=== PATIENT | female | born 1995 | race Caucasian/White ===

== ENCOUNTER → 2020-10-15 11:26 | Outpatient (CLI) | payer SELFPAY ==
[2020-10-15 10:25] VITALS: BMI 21.9
[2020-10-15 12:47] LABS: Absolute Lymphocyte Count 2.01 X10^3/uL (0.83-4.51); Absolute Neutrophil Count 4.2 X10^3/uL (2.0-7.7); Basophil# 0.04 X10^3/uL; Basophil% 0.6 % (0-1); Eosinophil# 0.03 X10^3/uL; Eosinophils% 0.4 % (0-5); Hematocrit 38.3 % (37-47); Hemoglobin 12.6 g/dL (12.0-15.0); Lymphocyte # 2.01 X10^3/ul (4.0); Lymphocyte % 29.1 % (19-41); Mean Corp Hgb Conc 32.9 g/dL (32-36); Mean Corpuscular Hgb 29.3 pg (27.0-32.0); Mean Corpuscular Volume 89.1 fL (81-99); Mean Platelet Vol. 9.4 fl (6.2-12.0); Monocyte# 0.58 X10^3/uL; Monocyte% 8.4 % (0-10); NRBC Flagged by Analyzer 0 % (0-5); Neutrophil # 4.22 X10^3/uL (2.7-7.7); Neutrophil % 61.1 % (47-70); Platelet Count 246 K/mm3 (150-450); RBC Distribution Width CV 12.2 % (11.6-14.6); RBC Distribution Width SD 39.8 fl (35.1-43.9); White Blood Count 6.9 K/mm3 (4.4-11.0)
[2020-10-15 14:03] LABS: Amphetamine Urine VISTA NEGATIVE (<1000 ng/mL); Barbiturate Urine VISTA NEGATIVE (< 200 ng/mL); Benzodiazepine Urine VISTA NEGATIVE (< 200 ng/mL); Cocaine Urine VISTA NEGATIVE (< 300 ng/mL); Ecstacy Urine VISTA NEGATIVE (< 500 ng/mL); Methadone Urine VISTA NEGATIVE (< 300 ng/mL); PCP Urine VISTA NEGATIVE (< 25 ng/mL); THC Urine VISTA NEGATIVE (< 50 ng/mL); Vista UDS pH Range 7
[2020-10-15 16:10] LABS: HIV - WCH Non-Reactive (Nonreactive); Hepatitis B Surface Antigen Non-Reactive (Nonreactive); Hepatitis C Antibody Non-Reactive (Nonreactive); Rubella IgG Reactive (Nonreactive); Syphilis Antibodies Non-reactive
[2020-10-17 03:07] LABS: Chlamydia By Nucleic Acid AMP Negative (Negative)
[2020-10-17 11:34] LABS: Gonococcus By Nucleic Acid AMP Negative (Negative)
== END ==
PROVIDERS: Referring Provider Obstetrics & Gynecology; Visit Provider Obstetrics & Gynecology
DX: Z34.90 Encounter for supervision of normal pregnancy, unspecified, unspecified trimester (principal)
CPT/HCPCS: 36415; 80307; 85025; 86703; 86762; 86780; 86803; 86850; 86900; 86901; 87086; 87088; 87340; 87491; 87591

== ENCOUNTER → 2020-11-07 12:18 | Outpatient (CLI) | payer SELFPAY ==
[2020-10-15 10:25] VITALS: BMI 21.9
--- NOTE | 2020-11-07 12:25 | US_ITS ---
STUDY: FIRST TRIMESTER OBSTETRICAL ULTRASOUND REASON FOR EXAM: Female, 25 years old well being LMP: 08/31/2020. TECHNIQUE: Transvaginal TECHNICAL QUALITY: Adequate. PRIOR ULTRASOUND: None. FINDINGS: There is visualization of a single gestational sac in a normal intrauterine position. The mean sac diameter (MSD) measures 3.55 cm, indicating an estimated gestational age (EGA) of 8 weeks, 5 days. The gestational sac shape is within normal limits. There is no demonstrated yolk sac. The placenta is non-visualized. There is visualization of an embryo with no cardiac activity, consistent with intrauterine demise. The crown-rump length (CRL) measures 2 cm, indicating an estimated gestational age (EGA) of 80 weeks, 3 days. The estimated gestation age (EGA) by LMP is 9 weeks, 5 days. The estimated date of delivery (CHUNG) by LMP is 06/07/2021. The estimated gestation age (EGA) by US is 8 weeks, 4 days. The estimated date of delivery (CHUNG) by US is 06/15/2021. The uterus measures 10.7 cm x 7.8 cm x 7.1. There is no demonstrated uterine fibroid. The cervix is closed. The right ovary measures 2.9 cm x 3.9 cm x 2.1 cm. There is no right ovarian cyst. There is no visualized right adnexal mass or complex lesion. The left ovary measures 3.4 cm x 3 cm x 1.6 cm. There is no left ovarian cyst. There is no visualized left adnexal mass or complex lesion. There is no fluid in the cul de sac. US/Init OB < 14Wks US IMPRESSION: demise. Electronically Signed: Armaan Davis MD at 13:48 EDT , Service support ,
== END ==
PROVIDERS: Referring Provider Nurse Practitioner Women's Health; Visit Provider Nurse Practitioner Women's Health
DX: O36.4XX0 Maternal care for intrauterine death, not applicable or unspecified (principal); Z3A.08 8 weeks gestation of pregnancy
CPT/HCPCS: 76801

== ENCOUNTER 2020-11-08 11:48 | Day surgery (SDC) | payer SELFPAY ==
[2020-11-07 13:02] VITALS: BMI 21.9
[2020-11-08] VITALS (7 sets, daily range): BP systolic 87–97; BP diastolic 54–69; PULSE 76–96; RESP 14–16; TEMP 36.4–37.4; O2SAT 97–100; BMI 22.1
--- NOTE | 2020-11-08 12:23 | HP.PCM.OB_ITS ---
HPI - General HPI Narrative ROSALINE WEINBERG, is a 25 F who presents for suction dilation and curettage for missed . [facility] Medical History Migraine Non-smoker Stomach ulcer Wears glasses Home Medications cholecalciferol (vitamin D3) 25 mcg (1,000 unit) capsule 25 mcg PO DAILY 10/12/20 [History Last Taken Unknown] folic acid 1 mg tablet 1 mg PO DAILY 10/12/20 [History Last Taken Unknown] multivitamin no.47-iron fum 27 mg-folate no.1 1 mg-dha 300 mg capsule 1 cap PO DAILY 10/12/20 [History Last Taken Unknown] Allergy/AdvReac Type Severity Reaction Status Date / Time No Known Allergies Allergy Verified 11/07/20 14:08 Family History Father , age 51 Alcohol abuse Hypertrophic cardiomyopathy Grandmother , 70's CVA (cerebral vascular accident) Cancer Lung- non smoker Grandfather , 50's Heart disease Grandfather Heart disease Grandmother Heart disease Uncle Diabetes type 2 Uncle , age 40 Cancer esophageal cancer Surgical History H/O wisdom tooth extraction History of skin graft (~2010) History of tonsillectomy Social History adopted: No household members: spouse housing: condominium current occupational status: employed 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 [place] sexually active: Yes Smoking Status: Never smoker second hand exposure: No alcohol intake: never substance use type: does not use seatbelt use: always do you feel safe at home: Yes additional social history: - [facility] ([facility]) History 1 Elective abortions Hx Para Spontaneous abortions Hx # Term Pregnancies Ectopic pregnancies Hx # Pregnancies Multiple births # of living children Visit Details Expected Delivery Route/Plan Plans OB Flowsheet Initial Weight: Not Recorded Date -?-?-?-?-?-?--?-?-?-?-?-?- EGA Weight BP Urine Prot -?-?-?-?-?-?-?-?-?-?-?-?- Glucose FHR FuHt Pres Dilation -?-?-?-?-?-?-?-?-?-?-?-?- Effaced St Visit Note 10/15/20 -?-?-?-?-?-?-?-?-?-?-?-?- 6w 3d 112 lb 6 oz 110/82 -?-?-?-?-?-?-?-?-?-?-?-?- 125 -?-?-?-?-?-?-?-?-?-?-?-?- GP - CRL 7mm con sistent with LMP. 11/07/20 -?-?-?-?-?-?-?-?-?-?-?-?- 9w 5d 113 lb 4 oz 108/68 -?-?-?-?-?-?-?-?-?-?-?-?- -?-?-?-?-?-?-?-?-?-?-?-?- GP - US today co nsistent with missed AB 11/08/20 -?-?-?-?-?-?-?-?-?-?-?-?- 9w 6d -?-?-?-?-?-?-?-?-?-?-?-?- -?-?-?-?-?-?-?-?-?-?-?-?- ROS Eyes Eyes: Reports systems reviewed and no addt'l complaints, except as documented ENT HEENT: Reports systems reviewed and no addt'l complaints, except as documented Cardiovascular Cardiovascular: Reports systems reviewed and no addt'l complaints, except as documented Respiratory/Chest Respiratory/Chest: Reports systems reviewed and no addt'l complaints, except as documented Gastrointestinal Gastrointestinal: Reports systems reviewed and no addt'l complaints, except as documented Genitourinary Genitourinary: Reports systems reviewed and no addt'l complaints, except as documented Musculoskeletal Musculoskeletal: Reports systems reviewed and no addt'l complaints, except as documented Integumentary Integumentary: Reports systems reviewed and no addt'l complaints, except as documented Neurologic Neurologic: Reports systems reviewed and no addt'l complaints, except as documented Psychiatric Psychiatric: Reports systems reviewed and no addt'l complaints, except as documented Endocrine Endocrinology: Reports systems reviewed and no addt'l complaints, except as documented Hematologic/Lymphatic Hematologic/Lymphatic: Reports systems reviewed and no addt'l complaints, except as documented Allergic/Immunologic Allergic/Immunologic: Reports systems reviewed and no addt'l complaints, except as documented Physical Exam Const alert, oriented x3, no apparent distress, average body habitus, healthy appearing and well nourished HEENT normocephalic and moist oral mucous membranes Head and Scalp: atraumatic Eyes PERRL and EOMs intact bilaterally Neck full ROM Resp normal respiratory effort, no retractions and no use of accessory muscles Cardio regular rate and regular rhythm GI soft to palpation, non-tender and non-distended Extremity normal to inspection and full ROM Skin no rashes or lesions noted Neuro no focal motor deficits and no sensory deficits noted Psych mental status grossly normal, affect normal, speech normal and activity/motor behavior normal Assessment & Plan (1) Missed : PLAN: Patient diagnosed with miscarriage on US 11/07.? No heart rate present and crown-rump length measuring 1 week behind. Discussed ultrasound findings with patient and her Reassurance provided that this is not uncommon and that there is nothing that she did to cause this or could have been done to prevent this. Discussed that this would not have a significant effect on her ability to get in the future Management options discussed with patient including expectant management, medical management, and surgical management with suction D&C.? Patient desires definitive surgical intervention with suction D&C. The nature of the procedure was described to the patient. The risks, benefits, indications, and alternatives to the procedure were discussed with the patient including bleeding, infection, and damage to surrounding structures. Discussed that risks are very low with D&C. Discussed the possibility of perforation and that this could require laparotomy or laparoscopy. Discussed the possibility of damage to surrounding structures including uterus, tubes, ovaries, bowel, or bladder. Understands the risk of hospitalization or reoperation. Voices understanding and agrees to proceed. Medical and surgical history reviewed and are noncontributory Plan for suction dilation and curettage Rh negative - plan rhogam following procedure
[2020-11-08 12:35] LABS: Hematocrit 38.1 % (37-47); Hemoglobin 12.6 g/dL (12.0-15.0); Mean Corp Hgb Conc 33.1 g/dL (32-36); Mean Corpuscular Hgb 28.8 pg (27.0-32.0); Mean Platelet Vol. 9.1 fl (6.2-12.0); Platelet Count 249 K/mm3 (150-450); RBC Distribution Width CV 12.1 % (11.6-14.6); RBC Distribution Width SD 39.1 fl (35.1-43.9); Red Blood Count 4.38 M/mm3 (4.2-5.4); White Blood Count 7.4 K/mm3 (4.4-11.0)
[2020-11-08] MEDS: Lactated Ringers 1,000 ML 100 ML IV (12:44)
[2020-11-08] MEDS: Doxycycline 100 MG CAPSULE 200 MG PO (12:45)
[2020-11-08] MEDS: Ondansetron 4 MG/2 ML Vial IV (13:45)
--- NOTE | 2020-11-08 13:45 | POC_PTH ---
PATIENT: ROSALINE WEINBERG LOC: [facility] [place] U#:[id number] AGE/SX: 25/F ROOM: RE11/08/[address]: Dr. Esha Flower MD : 1995 BED: DIS: 11/08/2020 SPEC #: [id number] RECD: 11/08/20 14:29 STATUS: JULIÁN RENate #: [id number] JOVI: 11/08/20 13:[address]: Esha Flower DEPT: SURGICAL PATHOLOGY RECD BY: Rosa Lynch ENTERED: 11/09/20 09:52 SP TYPE: PROD CONC OTHR DR: No Primary Care Phys Tissues: Product of conception, NOS Procedures: Surgery Specimen Level IV HEADER OPERATION: Suction dilation and curettage PRE-OP DIAGNOSIS: Missed AB TISSUE SUBMITTED: Uterine contents MICROSCOPIC DIAGNOSIS Uterine contents: [place], gestational endometrium, immature chorionic villi and tissue (products of conception). SJ:marilee 11/12/2020 MICROSCOPIC DESCRIPTION Slides are reviewed. GROSS DESCRIPTION Received in fixative is one container labeled with the patient's name and designated uterine contents. The specimen consists of multiple fragments of pink hemorrhagic soft tissue that in aggregate measure 8 x 8 x 2 cm. tissue is not identified. Door Repairman tissue is submitted in two cassettes. / SAMSON:marilee 11/09/20 TC:5 CPT: 46074
--- NOTE | 2020-11-08 14:35 | EX.PCM.DISCH ---
Discharge Instructions Procedure D&C Diet Discharge Diet: No restrictions Activity Discharge Activity: Return to Normal Activity, May Shower and May Take a Tub Bath (in 2 weeks.) Follow Up Care Test Results: Test results from this visit will be discussed in further detail at your follow-up appointment, if applicable. Discharge Plan Admission Primary Reason for Your Visit: Miscarriage Attending Provider: Esha Flower Primary Care Provider: Care Physician,No Primary Instructions Patient Instructions: Dilation and Curettage Discharge Orders/Prescriptions Prescriptions: New ibuprofen [ibuprofen] 600 MG tablet 600 mg PO Q6H PRN PRN (Reason: pain) Qty: 30 RF: 1 Continued PNV-DHA 27 mg iron-1 mg -300 mg capsule 1 cap PO DAILY RF: 0 folic acid 1 mg tablet 1 mg PO DAILY RF: 0 cholecalciferol (vitamin D3) 25 mcg (1,000 unit) capsule 25 mcg PO DAILY RF: 0 Referrals / Follow Up: Care Physician,No Primary [Primary Care Provider] - Disposition Disposition (needs filled in before D/C Order can be placed): Home, self care
--- NOTE | 2020-11-08 14:40 | EX.PCM.OBRPT ---
Report of Operation (OB) Information CHUNG Calculator Estimated Delivery Date Method Current WG Current Estimate 06/07/21 Ultrasound #1 9w 6d Other Estimates 05/14/21 LMP (Certain) 13w 2d
--- NOTE | 2020-11-08 16:08 | PCM.OPRPT ---
Problems Associated Problem List Diagnoses (1) Missed : Report of Operation Date of Procedure: 11/08/20 Pre-Operative Diagnosis: Missed Post-Operative Diagnosis: same Surgery/Procedure Performed:: suction dilation and curettage Description of Surgical Findings:: Normal appearing cervix marketing officer: None Type of Anesthesia: MAC Anesthesiologist: William Hernandez Special Medications: Doxycycline PO pre-op Specimen's removed: Products of conception Estimated Blood Loss (mL): 20 cc Description of Procedure: The patient was taken to the operating room where anesthesia was obtained without difficulty. She was prepped and draped in the dorsal lithotomy position with yellofin stirrups. A weighted speculum was placed in the posterior aspect of the vagina and the anterior lip of the cervix was grasped with a ring forcep. The cervix was sequentially dilated to accommodate a #8 curved curette. The suction was activated and the products of conception were removed in an outward rotating movement. A gentle sharp curettage was then performed followed by an additional pass with the suction. The procedure was deemed complete. All instruments were removed from the vagina. The patient was awakened from anesthesia and taken to the recovery room in stable condition. Complications None Admit VTE Documentation VTE Present on Admission: No VTE Mechan Device Prophylaxis: SCD's VTE Pharm Prophylaxis ordered?: No Multi Select Codes Urinary/Genital Urinary/Genital CPT Codes: 51549 Trmt of incomplete Ab, any TM
== END 2020-11-08 16:20 | disposition home or self-care (01) ==
LOC: SDC 11:49 → AC 11:50
PROVIDERS: Referring Provider Obstetrics & Gynecology; Visit Provider Obstetrics & Gynecology
PROC: (CPT 59812; principal; 2020-11-08 13:30)
DX: O03.4 Incomplete spontaneous abortion without complication (principal); Z67.91 Unspecified blood type, Rh negative; Z87.11 Personal history of peptic ulcer disease; Z3A.09 9 weeks gestation of pregnancy
CPT/HCPCS: 01965; 59812; 85027; 86850; 86900; 86901; 87426; 88305; 90384; J7120; J2405; J2790

== ENCOUNTER → 2021-02-22 | Outpatient (CLI) | payer SELFPAY | END | disposition home or self-care (01) | LOC: LABSPEC 15:33 | PROVIDERS: Visit Provider Obstetrics & Gynecology | DX: Z34.91 Encounter for supervision of normal pregnancy, unspecified, first trimester (principal); Z3A.09 9 weeks gestation of pregnancy | CPT/HCPCS: 87086; 87088 ==

== ENCOUNTER → 2021-05-13 10:16 | Outpatient (CLI) | payer SELFPAY ==
--- NOTE | 2021-05-13 10:22 | US_ITS ---
STUDY: SECOND AND THIRD TRIMESTER OBSTETRICAL ULTRASOUND REASON FOR EXAM: Female, 26 years old anatomy scan LMP: 12/21/2020. TECHNIQUE: Transabdominal and Transvaginal TECHNICAL QUALITY: Adequate. PRIOR ULTRASOUND: None. FINDINGS: There is a single intrauterine fetus. The fetus is in a breech presentation. There is demonstrated cardiac activity with a heart rate of 158 bpm. There is a normal amniotic fluid volume. The largest amniotic fluid pocket measures 4.7 cm. The amniotic fluid index (VINOD) is within normal limits. The placenta is anterior in location and is not low lying. There are Grade 0 placental changes. The cervix measures 3.6 times in length. The bilateral adnexal regions are normal. BIOMETRY: BPD: 4.76 cm: 20 weeks, 2 days HC: 18.25 cm: 20 weeks, 4 days AC: 16.57 cm: 21 weeks, 4 days FL: 3.09 cm: 19 weeks, 4 days CI: 73% FL/BPD: 65% FL/HC: FL/AC: 19% HC/AC: 1.1 age by current US: 20 weeks, 3 days. CHUNG by current US: 09/27/2021. Estimated weight: 372 grams, +/- 56 grams, 60 %. Age by LMP: 20 weeks, 3 days. CHUNG by LMP: 09/27/2021. ANATOMY: Gender: Cranium: Normal lateral ventricles. Normal choroid plexus. Normal cerebellum. Normal cisterna magna. Normal face, nose and lips. Chest: Normal 4-chamber heart. Abdomen/Pelvis: Normal diaphragm. Normal stomach. Normal abdominal wall. Normal cord insertion. Normal 3 vessel cord. Normal kidneys. Normal bladder. Spine: Normal cervical spine. Normal thoracic spine. Normal lumbar spine. Normal sacrum. Extremities: Normal bilateral upper extremities. Normal bilateral lower extremities. US/OB Anatomy Scan IMPRESSION: Single live intrauterine gestation with a mean gestational age of 20 weeks and 3 days. Electronically Signed: Armaan Davis MD at 13:10 EST , Service support ,
== END ==
PROVIDERS: Referring Provider Obstetrics & Gynecology; Visit Provider Obstetrics & Gynecology
DX: Z34.90 Encounter for supervision of normal pregnancy, unspecified, unspecified trimester (principal)
CPT/HCPCS: 76805; 76817

== ENCOUNTER 2021-09-04 09:57 | Outpatient (CLI) | payer SELFPAY | END 2021-09-04 23:59 | disposition home or self-care (01) | LOC: LABSPEC 09:58 | PROVIDERS: Visit Provider Obstetrics & Gynecology | DX: O09.90 Supervision of high risk pregnancy, unspecified, unspecified trimester (principal) | CPT/HCPCS: 87081 ==

== ENCOUNTER 2021-10-02 07:46 | Inpatient (IN) | payer SELFPAY ==
[2020-10-15 10:25] VITALS: BMI 21.9
[2021-10-02] VITALS (43 sets, daily range): BP systolic 87–111; BP diastolic 50–70; PULSE 71–122; RESP 16; TEMP 36.3–37.2; O2SAT 95–100; BMI 29.5
[2021-10-02] MEDS: 0.9% Saline Lock 10 ML Syringe IV (08:05)
[2021-10-02 08:50] LABS: Absolute Lymphocyte Count 1.82 X10^3/uL (0.83-4.51); Absolute Neutrophil Count 8.6 X10^3/uL (2.0-7.7); Basophil# 0.05 X10^3/uL; Basophil% 0.4 % (0-1); Eosinophil# 0.02 X10^3/uL; Eosinophils% 0.2 % (0-5); Hematocrit 34.3 % (37-47); Hemoglobin 11.8 g/dL (12.0-15.0); Lymphocyte # 1.82 X10^3/ul (0.83-4.51); Lymphocyte % 15.8 % (19-41); Mean Corp Hgb Conc 34.4 g/dL (32-36); Mean Corpuscular Hgb 30.1 pg (27.0-32.0); Mean Corpuscular Volume 87.5 fL (81-99); Mean Platelet Vol. 9.8 fl (6.2-12.0); Monocyte# 0.79 X10^3/uL; Monocyte% 6.9 % (0-10); NRBC Flagged by Analyzer 0 % (0-5); Neutrophil # 8.64 X10^3/uL (2.7-7.7); Neutrophil % 75.2 % (47-70); Platelet Count 206 K/mm3 (150-450); RBC Distribution Width CV 14.1 % (11.6-14.6); RBC Distribution Width SD 45.1 fl (35.1-43.9); Red Blood Count 3.92 M/mm3 (4.2-5.4); White Blood Count 11.5 K/mm3 (4.4-11.0)
[2021-10-02 09:20] LABS: Rubella IgG Reactive (Nonreactive); Syphilis Antibodies Non-reactive
[2021-10-02 10:48] LABS: HIV - WCH Non-Reactive (Nonreactive); Hepatitis B Surface Antigen Non-Reactive (Nonreactive); Hepatitis C Antibody Non-Reactive (Nonreactive)
[2021-10-02] MEDS: Oxytocin 30 units/NS 500 ml 30 UNITS/500 ML IV.SOLN 334 UNITS IV (11:36)
--- NOTE | 2021-10-02 13:03 | HP.PCM.OB_ITS ---
HPI - General General Date of Admission: 10/02/21 HPI Narrative ROSALINE WEINBERG, is a 26 F who presents to L&D with painful contractions. She was found to be 5 cm dilated per the nurse who checked her and she is breathing heavily with contractions and unable to finish senetences Maternal Data Information CHUNG Calculator Estimated Delivery Date Method Current WG Current Estimate 09/27/21 Ultrasound #1 40w 5d Other Estimates 09/21/21 LMP (Certain) 41w 4d PFSH PFSH Medical History Abnormal antibody titer Migraine Non-smoker Stomach ulcer Wears glasses Home Medications multivitamin no.47-iron fum 27 mg-folate no.1 1 mg-dha 300 mg capsule 1 cap PO DAILY 10/12/20 [History Last Taken 10/01/21] ferrous sulfate [Iron (ferrous sulfate)] 325 mg PO DAILY 10/02/21 [History Last Taken 10/01/21] Allergy/AdvReac Type Severity Reaction Status Date / Time No Known Allergies Allergy Verified 09/26/21 09:08 Family History Father , age 51 Alcohol abuse Hypertrophic cardiomyopathy Grandmother , 70's CVA (cerebral vascular accident) Cancer Lung- non smoker Grandfather , 50's Heart disease Grandfather Heart disease Grandmother Heart disease Uncle Diabetes type 2 Uncle , age 40 Cancer esophageal cancer Surgical History H/O wisdom tooth extraction History of skin graft (~2010) History of tonsillectomy Status post dilation and curettage Social History adopted: No household members: spouse housing: condominium current occupational status: employed 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 Date Name GA/Weeks Outcome Route Bth Weight Gen Labor Lgth Anesthesia Del 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 Problem list reviewed and updated with the most current plan of care details and appropriate orders placed. Relevant counseling for the gestational age provided. Continue routine care and follow up unless otherwise noted in visit not es/problem list details OB Flowsheet Initial Weight: 119 lb Date -?-?-?-?-?-?-?-?-?-?-?-?- EGA Weight BP Urine Prot -?-?-?-?-?-?-?-?-?-?-?-?- Glucose FHR FuHt Pres Dilation -?-?-?-?-?-?-?-?-?-?-?-?- Effaced St Visit Note 02/22/21 -?-?-?-?-?-?-?-?-?-?-?-?- 9w 0d 119 lb (+0 oz) 112/62 -?-?-?-?-?-?--?-?-?-?-?-?- 175 -?-?-?-?-?-?-?-?-?-?-?-?- SM- CRL 2.1cm no t cons with LMP 03/20/21 -?-?-?-?-?-?-?-?-?-?-?-?- 12w 5d 123 lb 4 oz (+4 lb 4 oz) 104/66 -?-?-?-?-?-?-?-?-?-?-?-?- 160 -?-?-?-?-?-?-?-?-?-?-?-?- GP - no cramping or bleeding. Anatomy scan ordered. Don't have records from work - will send ROR 04/15/21 -?-?-?-?-?-?-?-?-?-?-?-?- 16w 3d 124 lb (+5 lb) 98/62 Negative -?-?-?-?-?-?-?-?-?-?-?-?- Negative 155 -?-?-?-?-?-?-?-?-?-?-?-?- SM-no vb crampin g 05/13/21 -?-?-?-?-?-?-?-?-?-?-?-?- 20w 3d 128 lb (+9 lb) 104/74 -?-?-?-?-?-?-?-?-?-?-?-?- 145 -?-?-?-?-?-?-?-?-?-?-?-?- SM- no vb crampi ng anatomy scan today 06/10/21 -?-?-?-?-?-?-?-?-?-?-?-?- 24w 3d 135 lb (+16 lb) 92/74 Negative -?-?-?-?-?-?-?-?-?-?-?-?- Negative 140 -?-?-?-?-?-?-?-?-?-?-?-?- SM- no vb lof ct x good fm 07/01/21 -?-?-?-?-?-?-?-?-?-?-?-?- 27w 3d 137 lb (+18 lb) 98/60 Negative -?-?-?-?-?-?-?-?-?-?-?-?- Negative 145 28 -?-?-?-?-?-?-?-?-?-?-?-?- SM- no vb lof go od fm no regular ctx 07/15/21 -?-?-?-?-?-?-?-?-?-?-?-?- 29w 3d 139 lb (+20 lb) 100/62 Negative -?-?-?-?-?-?-?-?-?-?-?-?- Negative 135 30 -?-?-?-?-?-?-?-?-?-?-?-?- JV- no lof, vagi nal bleeding, or dec fm. Rhogam was given. normal glucola (128) 07/29/21 -?-?-?-?-?-?-?-?-?-?-?-?- 31w 3d 140 lb (+21 lb) 96/58 Negative -?-?-?-?-?-?-?-?-?-?-?-?- Negative 154 32 -?-?-?-?-?-?-?-?-?-?-?-?- MH-No VB, LOF. Good FM. No concerns 08/15/21 -?-?-?-?-?-?-?-?-?-?-?-?- 33w 6d 144 lb 8 oz (+25 lb 8 oz) 100/70 Negative -?-?-?-?-?-?-?-?-?-?-?-?- Negative 145 33 -?-?-?-?-?-?-?-?-?-?-?-?- JV- no lof, vagi nal bleeding, or dec fm. taking iron and is self pay. wants to hold off on cbc at this time. 08/29/21 -?-?-?-?-?-?-?-?-?-?-?-?- 35w 6d 147 lb (+28 lb) 94/62 Negative -?-?-?-?-?-?-?-?-?-?-?-?- Negative 145 36 Cephalic -?-?-?-?-?-?-?-?-?-?-?-?- SM- no vb lof go od fm nor egular ctx 09/03/21 -?-?-?-?-?-?-?-?-?-?-?-?- 36w 4d 146 lb (+27 lb) 100/70 Negative -?-?-?-?-?-?-?-?-?-?-?-?- Negative 155 36 Cephalic 1 -?-?-?-?-?-?-?-?-?-?-?-?- 80 -2 JV- labor precautions discussed. GBS collected. 09/12/21 -?-?-?-?-?-?-?-?-?-?-?-?- 37w 6d 148 lb (+29 lb) 112/62 -?-?-?-?-?-?-?-?-?-?-?-?- 150 37 Cephalic 1 -?-?-?-?-?-?-?-?-?-?-?-?- 80 -2 SM- no vb lof good fm no regular ctx 09/19/21 -?-?-?-?-?-?-?-?-?-?-?-?- 38w 6d 148 lb 6 oz (+29 lb 6 oz) 100/70 Negative -?-?-?-?-?-?-?-?-?-?-?-?- Negative 156 38 Cephalic -?-?-?-?-?-?-?-?-?-?-?-?- JV- no lof, vagi nal bleeding, or dec fm. pt declines pelvic exam today. states no changes since last exam. likely plan 41 week IOL 09/26/21 -?-?-?-?-?-?-?-?-?-?-?-?- 39w 6d 148 lb 2 oz (+29 lb 2 oz) 110/72 Negative -?-?-?-?-?-?-?-?-?-?-?-?- Negative 150 39 Cephalic 2 -?-?-?-?-?-?-?-?-?-?-?-?- 80 -2 SM- no vb lof good fm co back labor. 10/02/21 -?-?-?-?-?-?-?-?-?-?-?-?- 40w 5d 151 lb (+32 lb) 105/70 92/54 105/58 90/62 108/60 110/59 106/58 102/56 -?-?-?-?-?-?-?-?-?-?-?-?- -?-?-?-?-?-?-?-?-?-?-?-?- ROS Constitutional Constitutional: Denies change in weight, fatigue, fever(s), headache(s), poor appetite or weakness Eyes Eyes: Denies blurry vision, change in vision, seeing flashes or spots in vision ENT HEENT: Denies dizziness, headache(s), loss taste/smell or sore throat Cardiovascular Cardiovascular: Denies chest pain, dizziness, dyspnea, irregular heart rhythm, leg edema, palpitations, rapid heart rate or vomiting Respiratory/Chest Respiratory/Chest: Denies chest tightness, cough, dyspnea or breast pain Gastrointestinal Gastrointestinal: Denies abdominal pain, anorexia, constipation, cramping, diarrhea, hemorrhoids, vomiting or weight changes Genitourinary Genitourinary: Denies dysuria, flank pain, genital lesions, genital pain, urinary frequency or urinary urgency Musculoskeletal Musculoskeletal: Denies back pain, difficulty walking, joint pain, limited range of motion, muscle cramps or numbness Integumentary Integumentary: Denies lesions or unusual bruising Neurologic Neurologic: Denies abnormal movements, abnormal speech, dizziness, numbness, seizure-like activity or syncope Psychiatric Psychiatric: Denies anxiety, behavioral changes, change in appetite, change in libido, cognitive impairment, confusion, depression, difficulty concentrating, hallucinations or suicidal thoughts Endocrine Endocrinology: Denies excessive sweating, polydipsia or polyuria Hematologic/Lymphatic Hematologic/Lymphatic: Denies easy bleeding, easy bruising or lymphadenopathy Allergic/Immunologic Allergic/Immunologic: Denies itchy eyes, lip swelling, seasonal rhinorrhea, rhinitis, throat swelling, tongue swelling, eczemia, wheezing or asthma Vital Signs Vital Signs Vital Signs: 10/02/21 07:16 10/02/21 07:19 10/02/21 07:20 Temperature 97.3 F L Temperature Source Temporal Pulse Rate 106 H 104 H Blood Pressure 105/70 BP Systolic 105 BP Diastolic 70 Pulse Ox 100 10/02/21 09:16 10/02/21 10:22 10/02/21 11:12 Temperature 97.4 F L 97.5 F L Temperature Source Temporal Temporal Pulse Rate 82 71 75 Blood Pressure 92/54 L 105/58 L BP Systolic 92 105 BP Diastolic 54 58 Pulse Ox 96 10/02/21 11:51 10/02/21 11:52 10/02/21 11:56 Temperature 97.5 F L Temperature Source Temporal Pulse Rate 101 H 102 H Blood Pressure 90/62 BP Systolic 90 BP Diastolic 62 Pulse Ox 100 100 10/02/21 12:01 10/02/21 12:06 10/02/21 12:09 Temperature 97.4 F L Temperature Source Temporal Pulse Rate 110 H 94 104 H Blood Pressure 108/60 BP Systolic 108 BP Diastolic 60 Pulse Ox 100 100 10/02/21 12:11 10/02/21 12:16 10/02/21 12:21 Temperature Temperature Source Pulse Rate 94 101 H 99 Blood Pressure BP Systolic BP Diastolic Pulse Ox 100 100 100 10/02/21 12:24 10/02/21 12:26 10/02/21 12:31 Temperature 98.4 F Temperature Source Temporal Pulse Rate 100 101 H 98 Blood Pressure 110/59 L BP Systolic 110 BP Diastolic 59 Pulse Ox 99 100 10/02/21 12:36 10/02/21 12:39 10/02/21 12:41 Temperature Temperature Source Pulse Rate 98 97 102 H Blood Pressure 106/58 L BP Systolic 106 BP Diastolic 58 Pulse Ox 100 99 10/02/21 12:46 10/02/21 12:51 10/02/21 12:54 Temperature Temperature Source Pulse Rate 98 106 H 102 H Blood Pressure 102/56 L BP Systolic 102 BP Diastolic 56 Pulse Ox 99 100 10/02/21 12:56 10/02/21 13:01 Temperature Temperature Source Pulse Rate 97 106 H Blood Pressure BP Systolic BP Diastolic Pulse Ox 100 99 Weight Weight: 151 lb Body Mass Index (BMI) 29.5 Physical Exam Const alert, oriented x3, no apparent distress and healthy appearing General Appearance: cooperative; Negative for anxious HEENT normocephalic Face and Sinus: normal facial exam Eyes EOMs intact bilaterally and no scleral icterus General Eye: normal appearance of both eyes Neck full ROM and supple Lymph Lymphatic: no lymphadenopathy noted Chest Chest: abnormal inspection of the chest Resp normal respiratory effort Effort and Inspection: able to speak in complete sentences Cardio regular rate GI soft to palpation and non-tender Inspection: gravid Palpation: soft; Negative for tender external exam normal Back/Spine no CVA tenderness Extremity normal to inspection, full ROM and no clubbing, cyanosis or edema General Extremity: Negative for calf tenderness or edema Skin Lesions: no lesions Rashes: no rashes Psych mental status grossly normal Labs Labs Labs: Blood Type O NEGATIVE Antibody Screen NEGATIVE Hct 34.3 % (37-47) L Hgb 11.8 g/dL (12.0-15.0) L Pap Smear Negative Obstetrics US Syphilis Total Ab Non-reactive Rubella IgG Antibody Reactive (Nonreactive) Hep Bs Antigen Non-Reactive (Nonreactive) Chlamydia DNA (GUEVARA) Negative (Negative) Neisseria gonorrhoeae DNA (GUEVARA) Negative (Negative) HIV 1&2 Antibody Non-Reactive (Nonreactive) Assessment & Plan (1) Anemia affecting in third trimester: COMMENT: iron supplement discussed. repeat cbc in 4-6 weeks (2) Supervision of high risk , antepartum: COMMENT: PRR CHUNG 09/27/21 surprise Spouse:Javier (3) : QUALIFIERS: Weeks of gestation: 39 weeks Qualified Code(s): Z3A.39 - 39 weeks gestation of COMMENT: declines genetic, carrier and AFP; NL anatomy. GBS neg (4) Rh negative status during : QUALIFIERS: Trimester: third trimester Qualified Code(s): O26.893 - Other specified related conditions, third trimester; Z67.91 - Unspecified blood type, Rh negative COMMENT: O negative. Rhogam at 28w and prn. Per patient received Rhogam on 07/09/21 in [place] office (5) Active labor: PLAN: Patient presents IAL, plan expectant management for , pitocin/AROM PRN if needed. Pain management: plans epidural. GBS negative. Management of any complications: none I have reviewed the [facility] and made any clinically relevant updates.
--- NOTE | 2021-10-02 17:08 | EX.PCM.OBRPT ---
Maternal Data Information CHUNG Calculator Estimated Delivery Date Method Current Current Estimate 09/27/21 Ultrasound #1 40w 5d Other Estimates 09/21/21 LMP (Certain) 41w 4d Vaginal Delivery Maternal Presentation Maternal Presentation: Active Labor Operative Information Date of Procedure: 10/02/21 Pre-Operative Diagnosis: @ 4o weeks 3 days, active labor Post-Operative Diagnosis: @ 4o weeks 3 days, active labor Type of Anesthesia: None Estimated Blood Loss: 200cc Findings Description of Procedure: Patient began pushing and delivered the head in the MARILEE presentation. The head was delivered atraumatically. The anterior and posterior shoulders delivered without complication followed by the rest of the and the was placed on the maternal abdomen. Delayed cord clamping was employed for approximately 60 seconds. Cord was clamped and cut and gentle traction was applied to the cord and the placenta delivered spontaneously immediately following it was noted to be intact with three-vessel cord. The perineum and vagina were inspected and noted to have a 2nd degree perineal laceration, which was repaired using a 2-0 vicryl suture. EBL was 200 cc. Patient and tolerated delivery well. Presentation: Vertex Amniotic Membrane Rupture Type: Spontaneous Amniotic Fluid Description: Clear Placental Delivery Description: Spontaneous Placenta Disposition: [facility] Cord Vessel Description: 3 Vessels Cord Entanglement: None Infant A Gender: Male (1 minute): 8 (5 minute): 9 Delayed Cord Clamping: Yes Post Vaginal Delivery Medications Given After Delivery: IV Pitocin Episiotomy Description: None Laceration: 2nd degree Complication Complications: None Multi Select Codes Urinary/Genital Urinary/Genital CPT Codes: 33371 Vaginal Delivery [facility]
[2021-10-02] MEDS: Benzocaine/Lanolin/Aloe Vera 1 SPRAY EACH TOPICAL (17:25)
[2021-10-03 03:56] VITALS: BP 96/57; PULSE 95; RESP 16; TEMP 36.6
[2021-10-03 08:25] VITALS: BP 93/63; PULSE 81; RESP 16; TEMP 36.9; O2SAT 95
--- NOTE | 2021-10-03 08:40 | PCM.DC ---
Discharge Instructions Diet Discharge Diet: No restrictions Activity Discharge Activity: Return to Normal Activity, May Not Drive (while taking narcotic pain medications.) and May Shower May resume sexual activity in: 4-6 weeks Dressing / Incision Call your doctor if your incision/area has: Continuous Slow Oozing, Sudden Increased Bleeding, Increased Pain/ Swelling, Increased Redness and Foul Smelling Discharge Follow Up Care Please Follow Up With: Claudette Saavedra DO When: Call [phone] to make an appointment with your doctor in 6 weeks. If you had elevated blood pressure or 4th degree laceration, you will need to be seen in 2 weeks. Test Results: Test results from this visit will be discussed in further detail at your follow-up appointment, if applicable. Discharge Plan Admission Admit Date/Time: 10/02/21 07:46 Primary Reason for Your Visit: vaginal delivery Attending Provider: Claudette Saavedra Primary Care Provider: Care Physician,No Primary Discharge Orders/Prescriptions Prescriptions: No Action PNV-DHA 27 mg iron-1 mg -300 mg capsule 1 cap PO DAILY RF: 0 ferrous sulfate [Iron (ferrous sulfate)] 325 mg (65 mg iron) Tablet 325 mg PO DAILY RF: 0 Referrals / Follow Up: Care Physician,No Primary [Primary Care Provider] - Disposition Disposition (needs filled in before D/C Order can be placed): Home, Self Care
--- NOTE | 2021-10-03 08:41 | PCM.PN.OB ---
Subjective Subjective Patient doing well without complaints. Tolerating PO. Ambulating and voiding without difficulty. Feeding well. Denies chest pain, shortness of breath, calf pain/swelling, fevers, chills, lightheadedness. Objective Data Objective Data Vital Signs: Vital Signs Temp Pulse Resp BP Pulse Ox 98.4 F 81 16 93/63 95 10/03/21 08:25 10/03/21 08:25 10/03/21 08:25 10/03/21 08:25 10/03/21 08:25 Oxygen Delivery Method Room Air Weight: 151 lb Body Mass Index (BMI) 29.5 Intake & Output: Intake and Output for Last 24 Hours 10/01/21 10/02/21 10/03/21 23:59 23:59 23:59 Intake Total 700 / 700 Output Total 1300 / 1300 Balance -600 / -600 Lab / Micro Data Result Diagrams: 10/02/21 08:20 Labs: Laboratory Results - last 24 hr 10/02/21 08:20: WBC 11.5 H, RBC 3.92 L, Hgb 11.8 L, Hct 34.3 L, MCV 87.5, MCH 30.1, MCHC 34.4, RDW Std Deviation 45.1 H, RDW Coeff of [place] 14.1, Plt Count 206, MPV 9.8, Immature Gran % (Auto) 1.500 H, Neut % (Auto) 75.2 H, Lymph % (Auto) 15.8 L, [place] % (Auto) 6.9, Eos % (Auto) 0.2, Baso % (Auto) 0.4, Absolute Neuts (auto) 8.6 H, Absolute Lymphs (auto) 1.82, Nucleated RBC % 0 10/02/21 08:20: Blood Type O NEGATIVE, Antibody Screen TNP 10/02/21 08:20: Syphilis Total Ab Non-reactive, Rubella IgG Antibody Reactive 10/02/21 08:20: Hep Bs Antigen Non-Reactive, Hepatitis C Antibody Non-Reactive, HIV 1&2 Antibody Non-Reactive 10/02/21 08:20: Antibody Screen NEGATIVE 10/02/21 15:15: Screen NEGATIVE, Baby's Blood Type O POSITIVE, Baby's BLANCA NEGATIVE Micro: Microbiology 10/02/21 08:24 Nasal Secretion SARS-CoV-2 Antigen (Rapid) - Final ROS Constitutional Constitutional: Denies chills, fatigue, fever(s), poor appetite or weakness Eyes Eyes: Denies blurry vision, change in vision, seeing flashes or spots in vision ENT HEENT: Denies dizziness, headache(s), loss taste/smell or sore throat Cardiovascular Cardiovascular: Denies chest pain, dizziness, dyspnea, irregular heart rhythm, palpitations or rapid heart rate Respiratory/Chest Respiratory/Chest: Denies chest tightness, cough, dyspnea or breast pain Gastrointestinal Gastrointestinal: Denies abdominal pain, constipation or vomiting Genitourinary Genitourinary: Denies dysuria or flank pain Musculoskeletal Musculoskeletal: Denies difficulty walking, joint pain, limited range of motion or numbness Neurologic Neurologic: Denies abnormal movements, abnormal speech, dizziness, numbness, seizure-like activity or syncope Psychiatric Psychiatric: Denies anxiety, behavioral changes, change in appetite, confusion, depression or suicidal thoughts Physical Exam Const alert, oriented x3 and no apparent distress General Appearance: cooperative and comfortable Resp normal respiratory effort Cardio regular rate GI normal to inspection, nondistended, normoactive bowel sounds GI Narrative: uterus is firm at umbilicus Palpation: soft OB / External & Speculum: other laceration site healing but has some bruising present Back/Spine no CVA tenderness and thoraco-lumbar ROM normal Extremity normal to inspection, no clubbing, cyanosis or edema, no calf tenderness and no pedal edema Psych mental status grossly normal, thought process normal, cooperative, affect normal, speech normal, activity/motor behavior normal, denies homicidal ideation and denies suicidal ideation Assessment & Plan (1) Active labor: (2) Anemia affecting in third trimester: COMMENT: iron supplement discussed. repeat cbc in 4-6 weeks (3) Supervision of high risk , antepartum: COMMENT: PRR CHUNG 09/27/21 surprise Spouse:Javier (4) : QUALIFIERS: Weeks of gestation: 39 weeks Qualified Code(s): Z3A.39 - 39 weeks gestation of COMMENT: declines genetic, carrier and AFP; NL anatomy. GBS neg (5) Rh negative status during : QUALIFIERS: Trimester: third trimester Qualified Code(s): O26.893 - Other specified related conditions, third trimester; Z67.91 - Unspecified blood type, Rh negative COMMENT: O negative. Rhogam at 28w and prn. Per patient received Rhogam on 07/09/[address] [place] office PLAN: s/p PPD # 1 1. routine post delivery care 2. breast feeding- support given 3. rh positive 4. rubella immune 5. may consider dc to home today after meeting with . if swelling and bruising worsens on labia will keep for obs overnight
[2021-10-03 13:18] VITALS: BP 102/72; PULSE 87; RESP 16; TEMP 36.3; O2SAT 94
--- NOTE | 2021-10-03 18:39 | NURSING ---
This RN has reviewed and agrees with charting completed by orienting RN Jamie Valentino
[2021-10-03 20:35] VITALS: BP 104/63; PULSE 91; RESP 16; TEMP 36.3
[2021-10-04 02:46] VITALS: BP 100/60; PULSE 73; RESP 14; TEMP 36.3
--- NOTE | 2021-10-04 08:01 | PCM.PN.OB ---
Subjective Subjective Patient doing well without complaints. Tolerating PO. Ambulating and voiding without difficulty. feeding well. Denies chest pain, shortness of breath, calf pain/swelling, fevers, chills, lightheadedness. Objective Data Objective Data Vital Signs: Vital Signs Temp Pulse Resp BP Pulse Ox 97.4 F L 73 14 100/60 94 10/04/21 02:46 10/04/21 02:46 10/04/21 02:46 10/04/21 02:46 10/03/21 13:18 Oxygen Delivery Method Room Air Weight: 151 lb Body Mass Index (BMI) 29.5 Intake & Output: Intake and Output for Last 24 Hours 10/02/21 10/03/21 10/04/21 23:59 23:59 23:59 Intake Total 700 / 700 Output Total 1300 / 1300 Balance -600 / -600 Lab / Micro Data Result Diagrams: 10/02/21 08:20 Micro: Microbiology 10/02/21 08:24 Nasal Secretion SARS-CoV-2 Antigen (Rapid) - Final ROS Constitutional Constitutional: Reports systems reviewed and no addt'l complaints, except as documented Cardiovascular Cardiovascular: Reports systems reviewed and no addt'l complaints, except as documented Respiratory/Chest Respiratory/Chest: Reports systems reviewed and no addt'l complaints, except as documented Gastrointestinal Gastrointestinal: Reports systems reviewed and no addt'l complaints, except as documented Physical Exam Const alert, oriented x3 and no apparent distress HEENT Head and Scalp: atraumatic Resp normal respiratory effort GI soft to palpation and non-tender Bimanual Exam - Vag & Uterus: uterus non-tender Uterus Palpation: uterus fundus firm (below Umbilicus) Assessment & Plan (1) Vaginal delivery: COMMENT: larisa 40 IAL [facility] [place] PLAN: routine care dc home
[2021-10-04 09:14] VITALS: BP 106/74; PULSE 113; RESP 18; TEMP 36.7; O2SAT 97
== END 2021-10-04 11:00 | disposition home or self-care (01) | DRG 807 ==
LOC: WPOUT 07:55 → WP 07:55
PROVIDERS: Admitting Provider Obstetrics & Gynecology; Referring Provider Obstetrics & Gynecology; Visit Provider Obstetrics & Gynecology
DX: O48.0 Post-term pregnancy (principal); Z37.0 Single live birth; O70.1 Second degree perineal laceration during delivery; Z20.822 Contact with and (suspected) exposure to COVID-19; Z67.91 Unspecified blood type, Rh negative; Z3A.40 40 weeks gestation of pregnancy
CPT/HCPCS: 59025; 59050; 85025; 85461; 86703; 86762; 86780; 86803; 86850; 86900; 86901; 87340; 87426; 90384; 99218; A4216; G0378; J2790

== ENCOUNTER → 2023-03-26 | Outpatient (CLI) | payer MEDICAID, SELFPAY ==
[2023-03-26 10:20] LABS: Absolute Lymphocyte Count 2.31 X10^3/uL (0.83-4.51); Absolute Neutrophil Count 5.5 X10^3/uL (2.0-7.7); Basophil# 0.05 X10^3/uL; Basophil% 0.6 % (0-1); Eosinophil# 0.08 X10^3/uL; Eosinophils% 0.9 % (0-5); Hematocrit 35.4 % (37-47); Lymphocyte # 2.31 X10^3/ul (0.83-4.51); Mean Corp Hgb Conc 33.9 g/dL (32-36); Mean Corpuscular Hgb 29.3 pg (27.0-32.0); Mean Corpuscular Volume 86.6 fL (81-99); Mean Platelet Vol. 8.8 fl (6.2-12.0); Monocyte# 0.61 X10^3/uL; Monocyte% 7.1 % (0-10); NRBC Flagged by Analyzer 0 % (0-5); Neutrophil # 5.47 X10^3/uL (2.7-7.7); Neutrophil % 63.9 % (47-70); Platelet Count 270 K/mm3 (150-450); RBC Distribution Width CV 13.3 % (11.6-14.6); RBC Distribution Width SD 41.7 fl (35.1-43.9); Red Blood Count 4.09 M/mm3 (4.2-5.4); White Blood Count 8.6 K/mm3 (4.4-11.0)
[2023-03-26 11:16] LABS: HIV - WCH Non-Reactive (Nonreactive); Hepatitis B Surface Antigen Non-Reactive (Nonreactive); Hepatitis C Antibody Non-Reactive (Nonreactive); Rubella IgG Reactive (Nonreactive); Syphilis Antibodies Non-reactive
[2023-03-27 21:06] LABS: Chlamydia By Nucleic Acid AMP Negative (Negative); Gonococcus By Nucleic Acid AMP Negative (Negative)
== END | disposition home or self-care (01) ==
PROVIDERS: Referring Provider Obstetrics & Gynecology; Visit Provider Obstetrics & Gynecology
DX: O09.90 Supervision of high risk pregnancy, unspecified, unspecified trimester (principal); Z3A.00 Weeks of gestation of pregnancy not specified
CPT/HCPCS: 36415; 85025; 86703; 86762; 86780; 86803; 86850; 86900; 86901; 87086; 87340; 87491; 87591

== ENCOUNTER → 2023-08-07 | Outpatient (CLI) | payer MEDICAID, SELFPAY ==
[2023-08-07 08:50] LABS: Absolute Lymphocyte Count 1.99 X10^3/uL (0.83-4.51); Basophil# 0.05 X10^3/uL; Basophil% 0.6 % (0-1); Eosinophil# 0.06 X10^3/uL; Eosinophils% 0.7 % (0-5); Hematocrit 31.8 % (37-47); Hemoglobin 10.4 g/dL (12.0-15.0); Lymphocyte # 1.99 X10^3/ul (0.83-4.51); Lymphocyte % 24.8 % (19-41); Mean Corp Hgb Conc 32.7 g/dL (32-36); Mean Corpuscular Hgb 30.1 pg (27.0-32.0); Mean Corpuscular Volume 91.9 fL (81-99); Monocyte# 0.59 X10^3/uL; Monocyte% 7.3 % (0-10); NRBC Flagged by Analyzer 0 % (0-5); Neutrophil # 5.03 X10^3/uL (2.7-7.7); Neutrophil % 62.7 % (47-70); Platelet Count 202 K/mm3 (150-450); RBC Distribution Width CV 13.1 % (11.6-14.6); RBC Distribution Width SD 42.5 fl (35.1-43.9); Red Blood Count 3.46 M/mm3 (4.2-5.4)
[2023-08-07 09:05] LABS: Glucose Challenge Gest 1H 50g 135 mg/dL (70-140)
[2023-08-07 09:38] LABS: HIV - WCH Non-Reactive (Nonreactive); Syphilis Antibodies Non-reactive
== END | disposition home or self-care (01) ==
LOC: PAVLAB 08:17
PROVIDERS: Referring Provider Registered Nurse; Visit Provider Registered Nurse
DX: O26.899 Other specified pregnancy related conditions, unspecified trimester (principal); Z67.91 Unspecified blood type, Rh negative; Z3A.00 Weeks of gestation of pregnancy not specified
CPT/HCPCS: 36415; 82950; 85025; 86703; 86780; 86850; 86900; 86901

== ENCOUNTER → 2023-08-19 | Outpatient (CLI) | payer MEDICAID, SELFPAY ==
--- OUTSIDE RECORDS SUMMARY | 2023-08-19 06:40 | XMS RPT_ITS | CCD ---
Author Name Unknown Address [address] [place] [address] Organization [facility] Care Team Providers Care Foam Caster Name Role Phone Unavailable Unavailable Unavailable Jessa Garcia NP Unavailable Jonna Parsons Unavailable Unavailable Jonna Parsons Unavailable Unavailable GAIL ZARATE Referring UnavailGAIL Mane Primary Care UnavailLAM Alonso Attending Unavailable Problems Problem Classification Problem Date Documented Date Episodic/Chronic Unclassified (2 sources) Gynecologic examination ; Translations: [Encounter for gynecological examination (general) (routine) without abnormal findings] Onset: 02-05-2017 02-05-2017 Results Test Name Value Interpretation Reference Range Facil ity Vital Signs Date Time Vital Sign Value Performing Clinician Facility 02-05-2017 08:27-0400 BMI (Body Mass Index) 23.16 kg/m2 Jessa Garcia NP [facility] 02-05-2017 08:27-0400 Body Temperature 97 [degF] Jessa Garcia NP [facility] 02-05-2017 08:27-0400 BP Diastolic 70 mm[Hg] Jessa Garcia NP [facility] 02-05-2017 08:27-0400 BP Systolic 102 mm[Hg] Jessa Garcia NP [facility] 02-05-2017 08:27-0400 Height 152.4 cm Jessa Garcia NP [facility] 02-05-2017 08:27-0400 Pulse (Heart Rate) 86 /min Jessa Garcia NP [facility] 02-05-2017 08:27-0400 Respiratory Rate 16 /min [facility] 02-05-2017 08:27-0400 Weight 53.8 kg Jessa Garcia NP [facility] Encounters Encounter Date Encounter Type Care Provider Facility Start: 06-09-2023 End: 06-09-2023 ambulatory GAIL ZARATE [facility] Start: 11-16-2017 Patient encounter Jonna Garcia ity:[place] Start: 11-16-2017 End: 11-16-2017 Ambulatory Lynnette Bhatia Work Phone: [facility] Plan of Treatment Date Care Activity Detail Author Start: 02-05-2017 End: 02-05-2017 [facility]ointment [facility] Payers Date Payer Category Payer Unknown [id number] Self-pay [id number] Unknown [id number] Social History Date Type Detail Facility Tobacco smoking status NHIS Unknown if ev er smoked [facility] on file [facility] Summary Purpose Family History No Family History Records FoundNo Family History Records Found Advance Directives No Advanced Directives Records FoundNo Advanced Directives Records Found Additional Source Comments INFORMATION SOURCE (unrecogn ized section and content) DATE CREATED AUTHOR AUTHOR'S ORGANIZ ATION 06/11/2023 [facility] FOR RECORDS PERTAINING TO PATIENTS WHO ARE OR HAVE BEEN ENROLLED IN A CHEMICAL DEPENDENCY/SUBSTANCEABUSE PROGRAM, SOME INFORMATION MAY BE OMITTED. This clinical summary was aggregated from multiple sources. Caution should be exercised in using it in the provision of clinical care. This summary normalizes information from multiple sources, and as a consequence, information in this document may materially change the coding, format and clinical context of patient data. In addition, data may be omitted in some cases. CLINICAL DECISIONS SHOULD BE BASED ON THE PRIMARY CLINICAL RECORDS. [employer] provides no warranty or guarantee of the accuracy or completeness of information in this document.
[2023-08-19 07:27] LABS: Glucose GTT-Gestation. Fasting 99 mg/dL (<105)
[2023-08-19 08:36] LABS: Vitamin B12 401 pg/mL (211-911)
[2023-08-19 09:18] LABS: Ferritin 7 ng/mL (8-252); Iron Binding Capacity,Total 466 ug/dL (250-450)
[2023-08-19 09:23] LABS: Glucose GTT-Gestational 1 Hr 169 mg/dL (<190)
[2023-08-19 10:47] LABS: Glucose GTT-Gestational 2 Hr 134 mg/dL (<165)
[2023-08-19 11:41] LABS: Glucose GTT-Gestational 3 Hr 59 L (<145)
== END | disposition home or self-care (01) ==
LOC: LAB 06:38
PROVIDERS: Referring Provider Advanced Practice Midwife; Visit Provider Advanced Practice Midwife
DX: O99.019 Anemia complicating pregnancy, unspecified trimester (principal); O99.810 Abnormal glucose complicating pregnancy; Z3A.00 Weeks of gestation of pregnancy not specified
CPT/HCPCS: 36415; 82607; 82728; 82746; 82951; 82952; 83550

== ENCOUNTER → 2023-10-01 | Outpatient (CLI) | payer MEDICAID, SELFPAY ==
[2023-10-01 09:56] LABS: Absolute Lymphocyte Count 1.87 X10^3/uL (0.83-4.51); Absolute Neutrophil Count 4.8 X10^3/uL (2.0-7.7); Basophil# 0.06 X10^3/uL; Basophil% 0.8 % (0-1); Eosinophil# 0.07 X10^3/uL; Eosinophils% 0.9 % (0-5); Hematocrit 34.5 % (37-47); Hemoglobin 11.3 g/dL (12.0-15.0); Lymphocyte # 1.87 X10^3/ul (0.83-4.51); Lymphocyte % 24.1 % (19-41); Mean Corp Hgb Conc 32.8 g/dL (32-36); Mean Corpuscular Hgb 29.5 pg (27.0-32.0); Mean Corpuscular Volume 90.1 fL (81-99); Mean Platelet Vol. 10.1 fl (6.2-12.0); Monocyte# 0.78 X10^3/uL; NRBC Flagged by Analyzer 0 % (0-5); Neutrophil # 4.84 X10^3/uL (2.7-7.7); Neutrophil % 62.3 % (47-70); Platelet Count 188 K/mm3 (150-450); RBC Distribution Width CV 14.1 % (11.6-14.6); RBC Distribution Width SD 45.6 fl (35.1-43.9); Red Blood Count 3.83 M/mm3 (4.2-5.4); White Blood Count 7.8 K/mm3 (4.4-11.0)
[2023-10-01 17:49] LABS: Xtra Tube EP Lab EXTRA TUBE
== END | disposition home or self-care (01) ==
LOC: PAVLAB 09:37
PROVIDERS: Advanced Practice Midwife; Referring Provider Obstetrics & Gynecology; Visit Provider Obstetrics & Gynecology
DX: O09.90 Supervision of high risk pregnancy, unspecified, unspecified trimester (principal); Z3A.00 Weeks of gestation of pregnancy not specified
CPT/HCPCS: 36415; 85025; 87081

== ENCOUNTER 2023-10-26 12:05 | Inpatient (IN) | payer MEDICAID, SELFPAY ==
[2023-10-26] VITALS (16 sets, daily range): BP systolic 101–121; BP diastolic 55–81; PULSE 70–134; RESP 14–16; TEMP 37.2–37.7; O2SAT 97–100; BMI 32.6
--- NOTE | 2023-10-26 12:57 | HP.PCM.OB_ITS ---
HPI - General General Date of Admission: 10/26/23 HPI Narrative ROSALINE WEINBERG, is a 28 F who presents at 39.4 with contractions since 629 with increasing intensity and frequency. no lof/vb. good fm. Maternal Data Information CHUNG Calculator Estimated Delivery Date Method Current WG Current Estimate 10/29/23 Ultrasound #1 39w 4d Other Estimates 10/22/23 LMP (Certain) 40w 4d PFSH PFSH Medical History Abnormal antibody titer Migraine Non-smoker Stomach ulcer Vaginal delivery Wears glasses Home Medications multivitamin no.47-iron fum 27 mg-folate no.1 1 mg-dha 300 mg capsule (PNV-DHA) 1 cap PO DAILY 10/12/20 [History Last Taken 10/01/21] calcium carbonate (Calcium 600) 600 mg PO DAILY 03/26/23 [History Last Taken Unknown] omega-3 fatty acids 500 mg PO DAILY 03/26/23 [History Last Taken Unknown] Allergy/AdvReac Type Severity Reaction Status Date / Time No Known Allergies Allergy Verified 10/26/23 12:58 Family History Father , age 51 Alcohol abuse Hypertrophic cardiomyopathy Grandmother , 70's CVA (cerebral vascular accident) Cancer Lung- non smoker Grandfather , 50's Heart disease Grandfather Heart disease Grandmother Heart disease Dementia Uncle Diabetes type 2 Uncle , age 40 Cancer esophageal cancer Surgical History H/O wisdom tooth extraction History of skin graft (~2010) History of tonsillectomy Status post dilation and curettage Social History adopted: No household members: spouse housing: condominium number of children: 1 current occupational status: unemployed current occupation: [employer] pets and animals: No history of recent travel: No sexually active: Yes Smoking Status: Never smoker second hand exposure: No alcohol intake: never substance use type: does not use seatbelt use: always do you feel safe at home: Yes additional social history: - Javier ([facility]) History 3 Elective abortions Hx Para 1 Spontaneous abortions 1 Hx # Term Pregnancies Ectopic pregnancies Hx # Pregnancies Multiple births # of living children 1 Past Pregnancies Del. Date Name GA/Weeks Outcome Route Bth Weight Gen Labor Lgth Anesthesia Del [facility] Provider FOB Unknown SAB D&C 11/2020 spontaneous 10/02/21 [place] 40 live - full term 8lbs 6oz Male [facility] Mira Herrera Visit Details Expected Delivery Route/Plan Labor Preferences- CB/BF classes: [] labor support person: Javier labor intervention preferences: unmedicated pain management options preferred: [] cut cord/dad catch: [] : [] PP control planned: [] discussed possible routes of delivery and associated risks: [] special requests: [] Plans Covid status: declined Flu vaccine: declined Tdap vaccine:declined Rhogam: given LARC form signed: declined movement and labor precautions reviewed. Problem list reviewed and updated with the most current plan of care details and appropriate orders placed. Relevant counseling for the gestational age provided. Continue routine care and follow up unless otherwise noted in visit notes/problem list details OB Flowsheet Initial Weight: 119 lb Date -?-?-?-?-?-?-?-?-?-?-?-?- EGA Weight BP Urine Prot -?-?-?-?-?-?-?-?-?-?-?-?- Glucose FHR FuHt Pres Dilation -?-?-?-?-?-?-?-?-?-?-?-?- Effaced St Visit Note 03/26/23 -?-?-?-?-?-?-?-?-?-?-?-?- 9w 0d 119 lb 6 oz (+6 oz) 91/63 -?-?-?-?-?-?-?-?-?-?-?-?- 160 -?-?-?-?-?-?-?-?-?-?-?-?- SM- CRL NOT cons with LMP, but cons with ovulation 04/23/23 -?-?-?-?-?-?-?-?-?-?-?-?- 13w 0d 126 lb 2 oz (+7 lb 2 oz) 113/71 Negative -?-?-?-?-?-?-?-?-?-?-?-?- Negative 170 -?-?-?-?-?-?-?-?-?-?-?--?- KW-no vb/crampin g. no concerns today. questions regarding tandem feeding. Letter for PCC US model. 05/21/23 -?-?-?-?-?-?-?-?-?-?-?-?- 17w 0d 135 lb 2 oz (+16 lb 2 oz) 105/70 Negative -?-?-?-?-?-?-?-?-?-?-?-?- Negative 145 -?-?-?-?-?-?-?-?-?-?-?-?- KW-no vb/crampin g. + flutters. no concerns. US on 06/0906/18/23 -?-?-?-?-?-?-?-?-?-?-?-?- 21w 0d 139 lb (+20 lb) 100/68 Negative -?-?-?-?-?-?-?-?-?-?-?-?- Negative 150 -?-?-?-?-?-?-?-?-?-?-?-?- SM- no vb lof cr amping. 07/17/23 -?-?-?-?-?-?-?-?-?-?-?-?- 25w 1d 146 lb 6 oz (+27 lb 6 oz) 97/64 Negative -?-?-?-?-?-?-?-?-?-?-?-?- Negative 145 -?-?-?-?-?-?-?-?-?-?-?-?- LC- no vb/ctx/lo f. good fm. normal anatomy. 28 week labs ordered. 08/07/23 -?-?-?-?-?-?-?-?-?-?-?-?- 28w 1d 151 lb 8 oz (+32 lb 8 oz) 110/72 Negative -?-?-?-?-?-?-?-?-?-?-?-?- Negative 135 28 -?-?-?-?-?-?-?-?-?-?-?-?- JV- gct pending today. rhogam given. No lof, vaginal bleeding, or dec fm 08/20/23 -?-?-?-?-?-?-?-?-?-?-?-?- 30w 0d 154 lb (+35 lb) 98/67 Negative -?-?-?-?-?-?-?-?-?-?-?-?- Negative 140 31 -?-?-?-?-?-?-?-?-?-?-?-?- SM- no vb lof go od fm no regualr ctx SM- no vb lof good fm no reg ular ctx nl 3 hr gtt 09/04/23 -?-?-?-?-?-?-?-?-?-?-?-?- 32w 1d 158 lb 6 oz (+39 lb 6 oz) 96/64 Negative -?-?-?-?-?-?-?-?-?-?-?-?- Negative 145 32 -?-?-?-?-?-?-?-?-?-?-?-?- LC- no vb/ctx/lo f.good fm. no concerns. lar obtained. repeat cbc at 37 weeks. 09/17/23 -?-?-?-?-?-?-?-?-?-?-?-?- 34w 0d 162 lb (+43 lb) 109/74 Negative -?-?-?-?-?-?-?-?-?-?-?-?- Negative 148 35 -?--?-?-?-?-?-?-?-?-?-?-?- kw- no vb/lof/ct x. good fm. discussed GBS next visit and preferences 10/01/23 -?-?-?-?-?-?-?-?-?-?-?-?- 36w 0d 163 lb 8 oz (+44 lb 8 oz) 111/73 Negative -?-?-?-?-?-?-?-?-?-?-?-?- Negative 145 36 Cephalic 1 -?-?-?-?-?-?-?-?-?-?-?-?- 30 -3 SM- no vb lof good fm no regular ctx gbs today 10/07/23 -?-?-?-?-?-?-?-?-?-?-?-?- 36w 6d 164 lb (+45 lb) 94/65 Negative -?-?-?-?-?-?-?-?-?-?-?-?- Negative 155 36 Cephalic -?-?-?-?-?-?-?-?-?-?-?-?- JV- gbs neg. no lof, vaginal bleeding, or dec fm. 10/15/23 -?-?-?-?-?-?-?-?-?-?-?-?- 38w 0d 166 lb (+47 lb) 107/73 Negative -?-?-?-?-?-?-?-?-?-?-?-?- Negative 145 38 Cephalic 2 -?-?-?-?-?-?-?-?-?-?-?-?- 70 -2 SM- no vb lof good fm n oregular ctx 10/22/23 -?-?-?-?-?-?-?-?-?-?-?-?- 39w 0d 166 lb 8 oz (+47 lb 8 oz) 103/72 Negative -?-?-?-?-?-?-?-?-?-?-?-?- Negative 145 39 Cephalic 3 .5 -?-?-?-?-?-?-?-?-?-?-?-?- 70 -2 KW- no vb/ lof/regular ctx. good fm. membrane sweep today NST FHR Rate Baby A Baseline: 140 Variability:: Moderate Accelerations:: None Decelerations:: None NST Reactive:: Yes FHR Category:: Category I Uterine Activity:: q4 ROS Cardiovascular Cardiovascular: Denies abdominal pain, chest pain, diaphoresis or dyspnea Respiratory/Chest Respiratory/Chest: Denies change in mental status, chest congestion, chest tightness, cough, shortness of breath at rest, shortness of breath with exertion, breast mass, breast pain, breast skin changes, breast swelling, change in breast shape or nipple discharge Genitourinary Genitourinary: Reports change in urinary stream Musculoskeletal Musculoskeletal: Reports none Integumentary Integumentary: Reports none Neurologic Neurologic: Reports none Psychiatric Psychiatric: Reports none Endocrine Endocrinology: Reports none Hematologic/Lymphatic Hematologic/Lymphatic: Reports none Allergic/Immunologic Allergic/Immunologic: Reports none Vital Signs Vital Signs Vital Signs: 10/26/23 11:55 10/26/23 11:55 10/26/23 11:58 Pulse Rate 110 H Blood Pressure 119/76 121/81 H BP Systolic 119 121 BP Diastolic 76 81 10/26/23 11:58 Pulse Rate 108 H Blood Pressure BP Systolic BP Diastolic Weight Weight: 167 lb 6 oz Body Mass Index (BMI) 32.6 Physical Exam Const alert, oriented x3 and no apparent distress General Appearance: cooperative, comfortable and well kempt Orientation / Consciousness: awake and oriented to person Exam Limitations: no limitations HEENT normocephalic Neck full ROM Chest inspection of chest normal Resp normal respiratory effort, normal air movement and no retractions Effort and Inspection: able to speak in complete sentences and symmetric chest movement Cardio regular rate Peripheral Pulses: pulses 2+ throughout GI normal to inspection, nondistended, normoactive bowel sounds Inspection: gravid no CVA tenderness and appearance of the vagina normal External Female Exam: normal appearance of the urethra; Negative for external lesion OB / External & Speculum: external exam normal Manual OB Exam: estimated gestational size appropriate and presentation cephalic Uterus Palpation: Negative for uterus tender Extremity normal to inspection Skin no rashes or lesions noted Neuro deep tendon reflexes 2+ bilaterally and gait normal Motor Exam: strength 5/5 throughout and clonus absent Psych Activity / Motor Behavior: appropriate eye contact Speech: normal speech Labs Labs Labs: Blood Type O NEGATIVE Antibody Screen NEGATIVE Hct 34.5 % (37-47) L Hgb 11.3 g/dL (12.0-15.0) L Pap Smear Negative Obstetrics Ultrasound Syphilis Total Ab Non-reactive Rubella IgG Antibody Reactive (Nonreactive) Hep Bs Antigen Non-Reactive (Nonreactive) Hepatitis C Antibody Non-Reactive (Nonreactive) Chlamydia DNA (GUEVARA) Negative (Negative) N.gonorrhoeae DNA (GUEVARA) Negative (Negative) HIV 1&2 Antibody Non-Reactive (Nonreactive) Glucose 1 Hr 50 gm 135 mg/dL (70-140) Gest Glucose Tolerance MG/DL Rhogam given: Yes Assessment & Plan (1) Active labor at term: PLAN: Plan Patient presents IAL, plan expectant management for , pitocin/AROM PRN if needed. Pain management: plans unmedicated, may have epidural if requested. GBS neg. Management of any complications: none I have reviewed the [facility] and made any clinically relevant updates. updated on admission, poc, exam.
[2023-10-26 13:09] LABS: Absolute Lymphocyte Count 1.81 X10^3/uL (0.83-4.51); Absolute Neutrophil Count 8.2 X10^3/uL (2.0-7.7); Basophil# 0.05 X10^3/uL; Basophil% 0.5 % (0-1); Eosinophil# 0.03 X10^3/uL; Eosinophils% 0.3 % (0-5); Hemoglobin 12.3 g/dL (12.0-15.0); Lymphocyte # 1.81 X10^3/ul (0.83-4.51); Lymphocyte % 16.3 % (19-41); Mean Corp Hgb Conc 34.2 g/dL (32-36); Mean Corpuscular Hgb 30.2 pg (27.0-32.0); Mean Corpuscular Volume 88.5 fL (81-99); Mean Platelet Vol. 10.4 fl (6.2-12.0); Monocyte# 0.88 X10^3/uL; Monocyte% 7.9 % (0-10); NRBC Flagged by Analyzer 0 % (0-5); Platelet Count 191 K/mm3 (150-450); RBC Distribution Width CV 13.9 % (11.6-14.6); RBC Distribution Width SD 45.1 fl (35.1-43.9); Red Blood Count 4.07 M/mm3 (4.2-5.4); White Blood Count 11.1 K/mm3 (4.4-11.0)
[2023-10-26 13:42] LABS: Syphilis Antibodies Non-reactive
[2023-10-26] MEDS: Lidocaine 1% (20 ml mdv) 20 ML Vial INFILT (16:12)
[2023-10-26] MEDS: Oxytocin 10 UNITS/ML Vial IM (16:18)
[2023-10-26] MEDS: Oxytocin 15 Units/NS 250ml 15 UNITS/250 ML IV.SOLN 83 UNITS IV (16:18)
[2023-10-26] MEDS: 0.9% Saline Lock 10 ML Syringe IV (16:18)
--- NOTE | 2023-10-26 17:09 | OP.PCM_ITS ---
Assessment & Plan (1) (spontaneous vaginal delivery): COMMENT: LC IAL 39.4 juan Maternal Data Information CHUNG Calculator Estimated Delivery Date Method Current WG Current Estimate 10/29/23 Ultrasound #1 39w 4d Other Estimates 10/22/23 LMP (Certain) 40w 4d Final CHUNG: 10/29/23 Final CHUNG Source: LMP Vaginal Delivery Maternal Presentation Maternal Presentation: Active Labor Maternal Presentation: at 39.4 with contractions with increased intensity and frequency. AROM for bulging bag, progressed to fully dilated quickly with good pushing efforts. Operative Information Date of Procedure: 10/26/23 Pre-Operative Diagnosis: see problem list Post-Operative Diagnosis: Surgery / Procedure Performed: Spontaneous Vaginal Delivery Type of Anesthesia: None Estimated Blood Loss: 300 Time of Delivery: 16:12 Findings Description of Procedure: Patient began pushing and delivered the head in the MARILEE presentation. The head was delivered atraumatically. The anterior and posterior shoulders delivered without complication followed by the rest of the infant and the infant was placed on the maternal abdomen. Delayed cord clamping was employed for approximately 60 seconds. Cord was clamped and cut and gentle traction was applied to the cord and the placenta delivered spontaneously immediately following it was noted to be intact with three-vessel cord. The perineum and vagina were inspected and noted to have left labial laceration repaired with 3-0 suture. EBL was 300cc. Patient and infant tolerated delivery well. Presentation: Vertex Amniotic Membrane Rupture Type: Artificial Amniotic Fluid Description: Clear Placental Delivery Description: Spontaneous Placenta Disposition: [facility] Cord Vessel Description: 3 Vessels Cord Entanglement: None A Gender: Male (1 minute): 8 (5 minute): 9 Delayed Cord Clamping: Yes Post Vaginal Delivery Medications Given After Delivery: IV Pitocin and IM Pitocin Laceration: None (left labial) Procedures Urinary/Genital [id number]: [id number] Vaginal Delivery [facility]
--- NOTE | 2023-10-26 17:13 | DCINST_ITS ---
Discharge Instructions Diet Discharge Diet: No restrictions Activity Discharge Activity: May Not Drive and May Shower May resume sexual activity in: 6 weeks Weight Bearing Status: Full weight bearing Dressing / Incision Call your doctor if your incision/area has: Sudden Increased Bleeding, Increased Pain/ Swelling and Foul Smelling Discharge Call your doctor if you observe: Fever of 101 or Higher, Numbness or Tingling, Change in Color, Inability to urinate, Inability to have a bowel movement, Using more than 1 pad per hour, Shortness of breath, Dizziness, Fainting spells, Chest pain, Calf discomfort and Uncontrolled pain Follow Up Care Please Follow Up With: Cadence Marsh CNM When: 6 weeks , please call office to make an appointment. Congratulations on the of your baby! Test Results: Test results from this visit will be discussed in further detail at your follow- up appointment, if applicable. Discharge Plan Admission Admit Date/Time: 10/26/23 12:05 Attending Provider: Cadence Marsh Primary Care Provider: Care Physician,Sharon Primary Discharge Orders/Prescriptions Prescriptions: No Action PNV-DHA 27 mg iron-1 mg -300 mg capsule 1 cap PO DAILY calcium carbonate [Calcium 600] 600 mg calcium (1,500 mg) tablet 600 mg PO DAILY Slow Fe 137 mg (45 mg iron) tablet extended release PO Referrals / Follow Up: Care Physician,No Primary [Primary Care Provider] - Disposition Disposition (needs filled in before D/C Order can be placed): Home, Self Care
[2023-10-27] VITALS (10 sets, daily range): BP systolic 100–118; BP diastolic 64–73; PULSE 90–122; RESP 16–18; TEMP 36.6–37.2; O2SAT 95–98
[2023-10-27] MEDS: 0.9% Saline Lock 10 ML Syringe IV ×2 (06:46→13:33)
[2023-10-27] MEDS: Rho(D) Immune Globulin 300 MCG (1500 Unit) Syringe IV (06:46)
[2023-10-27] MEDS: Lactated Ringers 1,000 ML 999 ML IV (07:35)
[2023-10-27 08:27] LABS: Absolute Lymphocyte Count 1.98 X10^3/uL (0.83-4.51); Absolute Neutrophil Count 9.3 X10^3/uL (2.0-7.7); Basophil# 0.05 X10^3/uL; Basophil% 0.4 % (0-1); Eosinophil# 0.03 X10^3/uL; Eosinophils% 0.2 % (0-5); Hematocrit 32.6 % (37-47); Hemoglobin 11.2 g/dL (12.0-15.0); Lymphocyte # 1.98 X10^3/ul (0.83-4.51); Lymphocyte % 15.6 % (19-41); Mean Corp Hgb Conc 34.4 g/dL (32-36); Mean Corpuscular Hgb 30.9 pg (27.0-32.0); Mean Corpuscular Volume 89.8 fL (81-99); Mean Platelet Vol. 10.5 fl (6.2-12.0); Monocyte# 1.13 X10^3/uL; Monocyte% 8.9 % (0-10); NRBC Flagged by Analyzer 0 % (0-5); Neutrophil # 9.32 X10^3/uL (2.7-7.7); Neutrophil % 73.6 % (47-70); Platelet Count 179 K/mm3 (150-450); RBC Distribution Width CV 13.8 % (11.6-14.6); RBC Distribution Width SD 45.4 fl (35.1-43.9); Red Blood Count 3.63 M/mm3 (4.2-5.4); White Blood Count 12.7 K/mm3 (4.4-11.0)
--- NOTE | 2023-10-27 09:47 | PN.OBGYN_ITS ---
Subjective Subjective Patient doing well without complaints. Tolerating PO. Ambulating and voiding without difficulty. Feeding well. Denies chest pain, shortness of breath, calf pain/swelling, fevers, chills, lightheadedness. Does have tachycardia-receiving IV bolus. Objective Data Objective Data Vital Signs: Vital Signs Temp Pulse Resp BP Pulse Ox O2 Del Method 98.9 F 102 H 16 105/71 96 Room Air 10/27/23 07:54 10/27/23 07:54 10/27/23 07:54 10/27/23 07:54 10/27/23 07:54 10/27/23 07:54 Oxygen Delivery Method Room Air Weight: 167 lb 6 oz Body Mass Index (BMI) 32.6 Intake & Output: Intake and Output for Last 24 Hours 10/25/23 10/26/23 10/27/23 23:59 23:59 23:59 Intake Total 250 / 250 Output Total 600 / 600 Balance -350 / -350 Lab / Micro Data 10/27/23 07:29 Labs: Laboratory Results - last 24 hr 10/26/23 12:50: WBC 11.1 H, RBC 4.07 L, Hgb 12.3, Hct 36.0 L, MCV 88.5, MCH 30.2, MCHC 34.2, RDW Std Deviation 45.1 H, RDW Coeff of [place] 13.9, Plt Count 191, MPV 10.4, Immature Gran % (Auto) 1.000 H, Neut % (Auto) 74.0 H, Lymph % (Auto) 16.3 L, [place] % (Auto) 7.9, Eos % (Auto) 0.3, Baso % (Auto) 0.5, Absolute Neuts (auto) 8.2 H, Absolute Lymphs (auto) 1.81, Nucleated RBC % 0, Syphilis Total Ab Non-reactive, Blood Type O NEGATIVE, Antibody Screen POSITIVE, Antibody Identification ANTI-D 10/26/23 19:05: Screen NEGATIVE, Baby's Blood Type O POSITIVE, Baby's BLANCA NEGATIVE 10/27/23 07:29: WBC 12.7 H, RBC 3.63 L, Hgb 11.2 L, Hct 32.6 L, MCV 89.8, MCH 30.9, MCHC 34.4, RDW Std Deviation 45.4 H, RDW Coeff of [place] 13.8, Plt Count 179, MPV 10.5, Immature Gran % (Auto) 1.300 H, Neut % (Auto) 73.6 H, Lymph % (Auto) 15.6 L, [place] % (Auto) 8.9, Eos % (Auto) 0.2, Baso % (Auto) 0.4, Absolute Neuts (auto) 9.3 H, Absolute Lymphs (auto) 1.98, Nucleated RBC % 0 Physical Exam Const alert and oriented x3 HEENT normocephalic Eyes PERRL Neck full ROM Resp normal respiratory effort GI soft to palpation GI Narrative: FF below U Assessment & Plan (1) (spontaneous vaginal delivery): COMMENT: LC IAL 39.4 juan (2) Rh negative status during : QUALIFIERS: Trimester: third trimester Qualified Code(s): O26.893 - Other specified related conditions, third trimester; Z67.91 - Unspecified blood type, Rh negative COMMENT: O negative. Rhogam at 28w and prn. Rhogam given 08/07/23 (3) Tachycardia: COMMENT: IV bolus (4) Anemia affecting : QUALIFIERS: Trimester: unspecified trimester Qualified Code(s): O99.019 - Anemia complicating , unspecified trimester COMMENT: resolved pp PLAN: Plan s/p PPD #1 1. routine post delivery care 2. breast feeding- support given 3. rh negative 4. rubella immune 5. If tachycardia resolves with fluid bolus, plans home today.
[2023-10-27] MEDS: Lactated Ringers 500 ML 999 ML IV (13:33)
--- NOTE | 2023-10-28 12:01 | CASEMGMT ---
Social Work Assessment Labor and Delivery Unit Patient Address: [address] [place] [address] Phone number: [phone] Date of Referral: 10/26/23 Time of Referral:? 1236 Referred By: Cadence Marsh Date of Intervention: 10/27/23 Time of Intervention:? 1430 Reason for Referral:? other Sw completed chart review and acknowledges social work consult. Sw presented to bedside and introduced self to mother of baby (MOB- Bere) and father of baby (FOJosiane- Javier). Sw explained reason for sw involvement and completed psychosocial assessment. History obtained from: medical records, MOB and FOB Household composition: Currently residing in the family home is MADDIE SANTO, their 2 year old son, Conrado, and now baby when discharged. Parents deny any issues or concerns with their housing. Patient's parent/guardian status:? HANSA states that she and MADDIE knew each other for a long time before they started dating. They met at a [employer] study group that they were both attending. MOB states that when they were all together people assumed that they were dating each other, but they never were. MADDIE states that he started to pray about a relationship with MOB, and encouraged MOB to also pray about being in a relationship. Then they started dating and got 6 months later. They have now been for 6 years. ? Medical History: HANSA is 28 year old female who is 3, para 1- now 2 following labor and delivery of . HANSA received routine care during with [facility]. HANSA presented to hospital and delivered baby at 39 weeks gestation via vaginal delivery. Baby boy, named Ike, was born weighing 9lb 5oz with apgars of 8 and 9 at one and five minutes of life, respectfully. Baby will be followed by Dr. Medeiros. HANSA states that she has a breast pump for home. ? Educational Status:? Both parents graduated from high school. HANSA obtained a Bachelors degree and MADDIE has some college courses but no degree. Parents deny any issues with reading, learning or comprehension. Financial Status: MADDIE is gainfully employed outside of the home at a [employer]. 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 Infant Supplies:?? Parents have obtained all necessary baby supplies, including: car seat, safe sleep space, clothes, diapers and wipes. Childcare/Caregiver(s):? HANSA will be the primary caregiver to baby along with FOB when he is not working. Transportation:?? Both parents have their drivers license and reliable means of transportation. No barriers at this time. Programs/Agencies Involved: Parents are connected to insurance through [employer] ([employer]) and [facility]. HANSA also states that she has a history of attending counseling at [facility], but is not connected at this time. ??? Children Services/Legal Issues:?no history of children services involvement, no issues or concerns warranting referral to be made at this time. ?? Behavioral Health Issues: ??Mental Health History:?FOJosiane denies mental health history. HANSA states that she possibly had some of the baby blues after her first son was born. MOB states that she was navigating life as a first time mom and the changes that it brings. MOB states that she is aware of signs and symptoms of baby blues and depression and anxiety to be on the look out for. MOB states that she is feeling really good at this time, and is not worried about her mental health status changing. ?? Substance Use History: Parents report that due to maternal family history of alcoholism they have never been interested in drinking. MOB states that she and FOB have never had a drink of alcohol and do not do any other drugs. ? Family History:?HANSA states that her father was an alcoholic and was no involved in her life while she was growing up. MOB states that her dad following a car accident, which she does not know if alcohol was a contributing factor of that. ? Drug Screens: ??No drug screens observed during chart review. Family/Social Stressors:? Parents deny any issues, concerns or stressors at this time. Support Systems: Parents state that they have a lot of family and mormon friends who are supportive. Depression/Shaken Baby/Safe Sleeping:? Kary educated parents on signs and symptoms of baby blues and depression/ anxiety to be on the lookout for. Parents express understanding. FOB states that he would be able to recognize if MOB were struggling with her mental health, and he states that he would be able to help her during that time. Kary educated parents on shaken baby prevention and ABCs of safe sleep. Parents express understanding. ASSESSMENT:? MOB and baby admitted following labor and delivery of . MOB states that she has everything she needs for baby and herself during this period. MOB and FOB observed to have strong connection/ relationship, FOB attentive to MOB and observed to provide loving and appropriate hands on care to . MOB talkative and upbeat, receptive to sw involvement and support. Both parents engaged in completion of psychosocial assessment. PLAN:? MOB and baby to be discharged when medically ready. ?No other services requested or indicated. Carolyne Martinez, TRUCK DESPATCHER, MOTOR VEHICLE REPRESENTATIVE
== END 2023-10-27 18:30 | disposition home or self-care (01) | DRG 560 ==
LOC: WPOUT 12:07 → WP 12:07
PROVIDERS: Obstetrics & Gynecology; Admitting Provider Registered Nurse; Referring Provider Registered Nurse; Visit Provider Registered Nurse
DX: O70.0 First degree perineal laceration during delivery (principal); Z37.0 Single live birth; O99.893 Other specified diseases and conditions complicating puerperium; R00.0 Tachycardia, unspecified; Z3A.39 39 weeks gestation of pregnancy
CPT/HCPCS: 59025; 59050; 85025; 85461; 86780; 86850; 86870; 86900; 86901; 90384; 99221; J7120; A4216; G0378; J2790; J2791

== ENCOUNTER → 2023-12-14 | Outpatient (CLI) | payer MEDICAID, SELFPAY ==
[2023-12-16 17:07] LABS: HPV APTIMA, High Risk Negative (Negative)
== END | disposition home or self-care (01) ==
LOC: LABSPEC 12:11
PROVIDERS: Referring Provider Obstetrics & Gynecology; Visit Provider Obstetrics & Gynecology
DX: Z12.4 Encounter for screening for malignant neoplasm of cervix (principal); N89.8 Other specified noninflammatory disorders of vagina
CPT/HCPCS: 87070; 87205; 87624; 88175; G0145

== ENCOUNTER → 2025-02-02 | Outpatient (CLI) | payer MEDICAID, SELFPAY ==
--- NOTE | 2025-02-02 13:58 | EKG12_ITS ---
Test Reason : FAMILY HISTORY Blood Pressure : */* mmHG Vent. Rate : 72 BPM Atrial Rate : 72 BPM P-R Int : 124 ms QRS Dur : 120 ms QT Int : 400 ms P-R-T Axes : 41 26 20 degrees QTcB Int : 438 ms Normal sinus rhythm Low voltage QRS Right bundle branch block Abnormal ECG Confirmed by UMER WILSON, COOKIE ([id number]), general expeditor STEPHANIE BARAKAT ([id number]) on 02/03/2025 5:57:43 AM Referred By: Claudette Saavedra Confirmed By: COOKIE OWUSU MD
== END | disposition home or self-care (01) ==
LOC: PSN 13:57
PROVIDERS: Referring Provider Obstetrics & Gynecology; Visit Provider Obstetrics & Gynecology
DX: R94.31 Abnormal electrocardiogram [ECG] [EKG] (principal); Z82.49 Family history of ischemic heart disease and other diseases of the circulatory system
CPT/HCPCS: 93005

== ENCOUNTER → 2025-04-26 | Outpatient (CLI) | payer MEDICAID, SELFPAY ==
--- NOTE | 2025-04-26 13:53 | ECHOD_ITS ---
Reason For Study Reason For Study: ABNORMAL EKG Procedure This was a 2D Doppler, Color Flow transthoracic echocardiogram. Perform valsalva manuever per order. Exam performed in department. Left Ventricle Normal size and thickness. Apical false tendon noted. The left ventricular ejection fraction is 65 %. Normal diastology for age. Right Ventricle Normal right ventricle. Atria The left and right atria are normal. Mitral Valve Normal mitral valve. Tricuspid Valve Mild (1+) tricuspid valve insufficiency. Normal pulmonary artery pressure. Aortic Valve Trisinus/trileaflet aortic valve. Pulmonic Valve The pulmonic valve is not well visualized. Trivial pulmonic valve insufficiency. Great Vessels Normal sized aortic root. Pericardium/Pleural No pericardial effusion. MMode/2D Measurements & Calculations LVIDd: 4.8 cm IVSd: 0.72 cm Ao root diam: 3.1 cm LVIDs: 2.8 cm LVPWd: 0.69 cm RVDd: 3.2 cm FS: 40.1 % LAV(MOD-bp): 22.2 ml LVAd ap4: 23.3 cm2 LVAd ap2: 23.5 cm2 LAV(MOD-bp) Indexed: 14.9 ml/m2 LVLd ap4: 6.9 cm LVLd ap2: 7.1 cm LAV(MOD-sp2): 25.3 ml EDV(MOD-sp4): 66.6 ml EDV(MOD-sp2): 63.3 ml LAV(MOD-sp4): 19.7 ml EDV(sp4-el): 67.2 ml EDV(sp2-el): 66.2 ml LVAs ap4: 12.6 cm2 LVAs ap2: 11.8 cm2 LVLs ap4: 5.7 cm LVLs ap2: 5.4 cm ESV(MOD-sp4): 24.0 ml ESV(MOD-sp2): 21.7 ml ESV(sp4-el): 23.5 ml ESV(sp2-el): 21.9 ml EF(MOD-sp4): 64.0 % EF(MOD-sp2): 65.7 % EF(sp4-el): 65.0 % SV(MOD-sp4): 42.6 ml SV(MOD-sp2): 41.6 ml SV(sp4-el): 43.7 ml SI(MOD-sp4): 28.7 ml/m2 SI(MOD-sp2): 28.0 ml/m2 LA A4 area: 9.9 cm2 LA dimension(2D): 2.7 cm RA A4 area: 11.8 cm2 TAPSE: 1.9 cm Time Measurements MV dec time: 0.21 sec Doppler Measurements & Calculations MV E max maxwell: 77.2 cm/sec Lat Peak E' Maxwell: 13.7 cm/sec Med Peak E' Maxwell: 13.7 cm/sec MV A max maxwell: 35.4 cm/sec E/E' lat: 5.7 E/E' med: 5.7 MV E/A: 2.2 MV V2 max: 89.9 cm/sec MV P1/2t max maxwell: 91.9 cm/sec Ao V2 max: 125.6 cm/sec MV max P.2 mmHg MV P1/2t: 73.1 msec Ao max P.3 mmHg MV V2 mean: 51.5 cm/sec Ao V2 mean: 88.9 cm/sec MV mean P.2 mmHg MV dec slope: 368.2 cm/sec2 Ao mean P.6 mmHg MV V2 VTI: 24.1 cm MVA(P1/2t): 3.0 cm2 Ao V2 VTI: 26.2 cm AV (velocity ratio): 0.83 LV V1 max: 105.7 cm/sec PA V2 max: 82.6 cm/sec TR max maxwell: 191.4 cm/sec LV V1 max P.5 mmHg TR max P.7 mmHg LV V1 mean P.1 mmHg LV V1 mean: 65.4 cm/sec LV V1 VTI: 21.6 cm ECHO/Echo Complete Interpretation Summary The left ventricular ejection fraction is 65 %. Mild (1+) tricuspid valve insufficiency. Ordering Physician: Samuel Zhang Referring Physician: SIM PCP Performed By: Edwige Lafleur RDCS, RVT
== END | disposition home or self-care (01) ==
LOC: CVS 13:53
PROVIDERS: Referring Provider Internal Medicine Cardiovascular Disease; Visit Provider Internal Medicine Cardiovascular Disease
DX: R94.31 Abnormal electrocardiogram [ECG] [EKG] (principal); Z82.49 Family history of ischemic heart disease and other diseases of the circulatory system
CPT/HCPCS: 93306